=== PATIENT | female | born 1985 | race Caucasian/White ===

== ENCOUNTER → 2024-07-25 15:37 | Outpatient (REF) | payer OTHER, SELFPAY | LOC: RAD 15:37 | PROVIDERS: ATTENDING PHYSICIAN Obstetrics & Gynecology | DX: O26.851 Spotting complicating pregnancy, first trimester (principal) | CPT/HCPCS: 76801 ==

== ENCOUNTER → 2025-01-05 10:14 | Outpatient (REF) | payer OTHER, SELFPAY | LOC: PNTC 10:14 | PROVIDERS: ATTENDING PHYSICIAN Advanced Practice Midwife | DX: O09.529 Supervision of elderly multigravida, unspecified trimester (principal) | CPT/HCPCS: 59025; 76815 ==

== ENCOUNTER → 2025-01-12 09:46 | Outpatient (REF) | payer OTHER, SELFPAY | LOC: PNTC 09:46 | PROVIDERS: ATTENDING PHYSICIAN Advanced Practice Midwife | DX: O09.529 Supervision of elderly multigravida, unspecified trimester (principal) | CPT/HCPCS: 59025; 76815 ==

== ENCOUNTER → 2025-01-19 09:38 | Outpatient (REF) | payer OTHER, SELFPAY | LOC: PNTC 09:38 | PROVIDERS: ATTENDING PHYSICIAN Advanced Practice Midwife | DX: O09.529 Supervision of elderly multigravida, unspecified trimester (principal) | CPT/HCPCS: 59025; 76815 ==

== ENCOUNTER → 2025-01-26 10:10 | Outpatient (REF) | payer OTHER, SELFPAY | LOC: PNTC 10:10 | PROVIDERS: ATTENDING PHYSICIAN Advanced Practice Midwife | DX: O09.529 Supervision of elderly multigravida, unspecified trimester (principal) | CPT/HCPCS: 59025; 76816 ==

== ENCOUNTER 2025-01-27 13:42 | Inpatient (IN) | payer OTHER, SELFPAY ==
[2025-01-27 12:14] VITALS: BP 143/90; BMI 34.4
[2025-01-27 13:10] LABS: ALT (SGPT) 11 U/L (0-35); AST (SGOT) 18 U/L (14-36); Albumin 3.8 g/dl (3.5-5.0); Alkaline Phosphatase 124 U/L (38-126); Blood Urea Nitrogen 6 mg/dl (7-17); Calcium 9.5 mg/dl (8.4-10.2); Carbon Dioxide 21 mmol/L (22-30); Chloride 105 mmol/L (98-107); Estimated Creatinine Clearance > 125 ml/min; Glucose 83 mg/dl (70-99); Potassium 4.1 mmol/L (3.5-5.1); Sodium 136 mmol/L (135-145); Total Bilirubin 0.7 mg/dl (0.2-1.3); Total Protein 6.8 g/dl (6.3-8.2); Uric Acid 6.5 mg/dl (2.5-6.2); eGFR > 60.00
[2025-01-27 13:16] LABS: Hematocrit 35.7 % (37.0-47.0); Hemoglobin 12.2 g/dL (12.0-16.0); Mean Corp Hgb Conc. 34.2 g/dL (33.0-37.0); Mean Corpuscular Volume 90.6 fL (81.0-99.0); Mean Platelet Volume 9.4 fL (7.4-10.4); Platelet Count 263 10^3/uL (130-400); Red Blood Cell Count 3.94 10^6/uL (4.20-5.40); Red Cell Dist. Width 12.3 % (11.5-14.5); White Blood Cell Count 9.9 10^3/uL (4.8-10.8)
[2025-01-27 13:31] LABS: Protein/creatinine Ratio 0.6; Urine Protein 13 mg/dl
[2025-01-27] MEDS: PENICILLIN 110 UNITS IV (14:26)
[2025-01-27] MEDS: LR 1000 IV (14:26)
[2025-01-27] MEDS: PITOCIN 30 UNITS/NSS 500 ML IV ×2 (16:02→19:53)
[2025-01-27] MEDS: PENICILLIN 55 UNITS IV (18:11)
== END 2025-01-29 13:17 | disposition home or self-care (01) | DRG 806 ==
LOC: LDRP 13:42
PROVIDERS: ADMITTING PHYSICIAN Advanced Practice Midwife
PROC: 10907ZC Drainage of Amniotic Fluid, Therapeutic from Products of Conception, Via Natural or Artificial Opening (ICD-10-PCS; 2025-01-27)
PROC: 0HQ9XZZ Repair Perineum Skin, External Approach (ICD-10-PCS; 2025-01-27)
PROC: 3E033VJ Introduction of Other Hormone into Peripheral Vein, Percutaneous Approach (ICD-10-PCS; 2025-01-27)
PROC: 10E0XZZ Delivery of Products of Conception, External Approach (ICD-10-PCS; 2025-01-27)
DX: O14.04 Mild to moderate pre-eclampsia, complicating childbirth (principal); D68.51 Activated protein C resistance; Z37.0 Single live birth; E72.12 Methylenetetrahydrofolate reductase deficiency; D68.59 Other primary thrombophilia; O99.12 Other diseases of the blood and blood-forming organs and certain disorders involving the immune mechanism complicating childbirth; O99.824 Streptococcus B carrier state complicating childbirth; Z3A.39 39 weeks gestation of pregnancy; O70.0 First degree perineal laceration during delivery; O99.284 Endocrine, nutritional and metabolic diseases complicating childbirth; Z28.310 Unvaccinated for COVID-19; Z28.39 Other underimmunization status
CPT/HCPCS: 80053; 82570; 84156; 84550; 85027; 86850; 86900; 86901; 87491; 87591